=== PATIENT | female | born 1995 | race Caucasian/White ===

== ENCOUNTER 2016-05-09 17:16 | Emergency (ER) | payer OTHER ==
[~2016-05-09] VITALS: Ht 170.2 cm; Wt 62.0 kg
[~2016-05-09 17:16] MED LIST: Albuterol INH; ETONMIS VAGRING; LEVO75TA5 PO
[2016-05-09 17:27] VITALS: TEMP 37; Ht 170.2 cm; Wt 62.0 kg
[2016-05-09 17:53] LABS: MANUAL MICROSCOPIC REQUIRED? YES; URINE APPEARANCE SL CLOUDY (CLEAR); URINE BILIRUBIN NEG (NEG); URINE COLOR YELLOW; URINE NITRITE NEG (NEG); URINE PH 6.5 (4.5-7.5); URINE SPECIFIC GRAVITY 1.025 (1.000-1.030); UROBILINOGEN NEG (NEG)
[2016-05-09 17:55] LABS: REVIEW REQ? NO
[2016-05-09] MEDS ORDERED: LEVO100T7 PO (17:58)
[2016-05-09 18:00] LABS: URINE AMORPHOUS SEDIMENT PRESENT (NONE PRSENT); URINE BACTERIA NEG (NEG); URINE MUCUS PRESENT (NONE PRSENT)
--- NOTE | 2016-05-09 18:00 | EMERGENCY ROOM VISIT NOTE ---
History Report prepared by Tiffanie: Lauren Enciso Under the Supervision of: Dr. Kamran Peralta M.D. First contact with patient: 17:36 Chief Complaint: MENTAL HEALTH EVALUATION Stated Complaint: MENTAL BREAKDOWN History of Present Illness The patient is a 20 year old female who presents to the Emergency Room for a mental health evaluation. The patient states that she has been experiencing emotional outburst since the fall that has progressively been worsening these past few weeks. She notes that the outburst can be angry or crying and she is unable to control her emotion during the outburst. The patient states that she has been suicidal since high school however today was the first time she made a plan. Her suicidal plan was to take all her thyroid medications at once. The patient's friend that was with her stopped her from taking the medication and talked with her. She notes that see use to see a therapist at [facility] who she had great success with however her insurance stopped covering her sessions. [facility] but notes she has not been making progress with this therapist. The patient last week did bad on an exam and that has been making her very upset. She notes school otherwise has been going well this year. The patient does admit to drinking and last night she did drink. Today was the first time she felt unsafe at home and thought she was going to hurt herself. The patient denies medication for depression or anxiety. Source of History: patient Onset: fall time Position: other (global) Quality: other (mental health evaluation) Timing: worsening Note: Patient has been experiencing emotional outburst, suicidal ideations and suicidal plan. Review of Systems See HPI for pertinent positives & negatives. A total of 10 systems reviewed and were otherwise negative. Past Medical & Surgical Medical Problems: (1) Thyroid disorder Family History Patient reports no known family medical history. Social History Smoking Status: Never Smoker Alcohol Use: occasionally Marital Status: single Housing Status: lives with roommate Occupation Status: [employer] student Current/Historical Medications Scheduled Etonogestrel/Ethinyl Estradiol (Nuvaring), 1 EA VAGRING MONTHLY Levothyroxine Sodium (Levothyroxine Sodium), 1 TAB PO DAILY Allergies Coded Allergies: Nitrofurantoin (Verified Allergy, Intermediate, syncope, 05/09/16) Apple (Verified Allergy, Unknown, throat swells,itching, 05/09/16) Physical Exam Vital Signs Date Time Temp Pulse Resp B/P Pulse Ox O2 Delivery O2 Flow Rate FiO2 05/09/16 19:11 88 18 132/70 99 Room Air 05/09/16 17:27 37.0 104 18 139/86 100 Room Air Physical Exam GENERAL: Patient is a healthy-appearing well-nourished HEAD: Normocephalic atraumatic EYES: Ocular movements intact pupils equal and react to light OROPHARYNX mucous membranes are moist no exudates present no erythema or edema present NECK: Supple no nuchal rigidity CHEST: Good equal expansion LUNGS: Clear and equal to auscultation CARDIAC: Normal S1 and S2 ABDOMEN: Soft nontender no guarding BACK: No CVA tenderness EXTREMITIES: No pain upon palpation normal muscle strength in all groups no clubbing cyanosis or edema NEURO: Patient is following commands is answering questions appropriately. Alert and oriented x3 Cranial Nerves 2-12 grossly intact Medical Decision & Procedures Laboratory Results 05/09/16 17:58 Red Blood Count 4.45, Mean Corpuscular Volume 86.1, Mean Corpuscular Hemoglobin 29.7, Mean Corpuscular Hemoglobin Concent 34.5, Mean Platelet Volume 10.4, Neutrophils (%) (Auto) 56.2, Lymphocytes (%) (Auto) 35.6, Monocytes (%) (Auto) 6.5, Eosinophils (%) (Auto) 1.0, Basophils (%) (Auto) 0.5, Neutrophils # (Auto) 4.96, Lymphocytes # (Auto) 3.14, Monocytes # (Auto) 0.57, Eosinophils # (Auto) 0.09, Basophils # (Auto) 0.04 05/09/16 17:58 Test 05/09/16 17:34 05/09/16 17:51 05/09/16 17:58 Urine Color YELLOW Urine Appearance SL CLOUDY (CLEAR) Urine pH 6.5 (4.5-7.5) Urine Specific [place] 1.025 (1.000-1.030) Urine Protein NEG (NEG) Urine Glucose (UA) NEG (NEG) Urine Ketones NEG (NEG) Urine Occult Blood TRACE (NEG) Urine Nitrite NEG (NEG) Urine Bilirubin NEG (NEG) Urine Urobilinogen NEG (NEG) Urine Leukocyte Esterase SMALL (NEG) Urine RBC 5-10 /hpf (0-4) Urine WBC 1-5 /hpf (0-5) Urine Epithelial Cells 10-20 /lpf (0-5) Urine Amorphous Sediment PRESENT (NONE PRSENT) Urine Bacteria NEG (NEG) Urine Mucus PRESENT (NONE PRSENT) Urine Test NEG (NEG) Urine Opiates Screen NEG (NEG) Urine Methadone, Qualitative NEG (NEG) Urine Barbiturates NEG (NEG) Urine Phencyclidine (PCP) Level NEG (NEG) Ur Amphetamine/Methamphetamine NEG (NEG) MDMA (Ecstasy) Screen NEG (NEG) Urine Benzodiazepines Screen NEG (NEG) Urine Cocaine Metabolite NEG (NEG) Urine Marijuana (THC) NEG (NEG) Bedside Glucose 106 mg/dl (70-90) White Blood Count 8.82 K/uL (4.8-10.8) Red Blood Count 4.45 M/uL (4.2-5.4) Hemoglobin 13.2 g/dL (12.0-16.0) Hematocrit 38.3 % (37-47) Mean Corpuscular Volume 86.1 fL (80-100) Mean Corpuscular Hemoglobin 29.7 pg (25-34) Mean Corpuscular Hemoglobin Concent 34.5 g/dl (32-36) Platelet Count 176 K/uL (130-400) Mean Platelet Volume 10.4 fL (7.4-10.4) Neutrophils (%) (Auto) 56.2 % Lymphocytes (%) (Auto) 35.6 % Monocytes (%) (Auto) 6.5 % Eosinophils (%) (Auto) 1.0 % Basophils (%) (Auto) 0.5 % Neutrophils # (Auto) 4.96 K/uL (1.4-6.5) Lymphocytes # (Auto) 3.14 K/uL (1.2-3.4) Monocytes # (Auto) 0.57 K/uL (0.11-0.59) Eosinophils # (Auto) 0.09 K/uL (0-0.5) Basophils # (Auto) 0.04 K/uL (0-0.2) RDW Standard Deviation 40.4 fL (36.4-46.3) RDW Coefficient of Variation 12.6 % (11.5-14.5) Immature Granulocyte % (Auto) 0.2 % Immature Granulocyte # (Auto) 0.02 K/uL (0.00-0.02) Anion Gap 12.0 mmol/L (3-11) Est Creatinine Clear Calc Drug Dose 103.5 ml/min Estimated GFR () 115.1 Estimated GFR (Non- 99.3 BUN/Creatinine Ratio 15.2 (10-20) Calcium Level 9.4 mg/dl (8.5-10.1) Total Bilirubin 0.2 mg/dl (0.2-1) Direct Bilirubin < 0.1 mg/dl (0-0.2) Aspartate Amino Transf (AST/SGOT) 14 U/L (15-37) Alanine Aminotransferase (ALT/SGPT) 16 U/L (12-78) Alkaline Phosphatase 60 U/L (45-117) Total Protein 7.7 gm/dl (6.4-8.2) Albumin 3.7 gm/dl (3.4-5.0) Globulin 4.0 gm/dl (2.5-4.0) Albumin/Globulin Ratio 0.9 (0.9-2) Thyroid Stimulating Hormone (TSH) 1.110 uIu/ml (0.300-4.500) Ethyl Alcohol mg/dL < 3.0 mg/dl (0-3) Labs reviewed by ED physician. Medications Administered Medications (Trade) Dose Ordered Sig/Luisa Route Start Time Stop Time Status Last Admin Dose Admin Trimethoprim/ Sulfamethoxazole (Septra Ds 800/ 160MG Tab) 1 tab NOW STAT PO 05/09/16 18:24 05/09/16 18:26 DC 05/09/16 18:29 1 TAB ED Course 1738: Past medical records reviewed. The patient was evaluated in room A7. A complete history and physical examination was performed. 1805: Macrobid Cap 100 mg PO. 1824: Septra Ds 800/ 160 mg Tab 1 tab PO. Medical Decision The patient is a 20 year old female who presents to the ED for a mental health evaluation. Differential diagnosis: Etiologies such as mood disorder, infection, hypoglycemia, electrolyte abnormalities, cardiac sources, intracerebral event, toxicologic, neurologic, as well as others were entertained. This is a 20-year-old female who presents emergency department complaining of emotional outburst today. The patient reports she was feeling suicidal and felt like she was going to take her thyroid medication. She does appear to be stable at this point. She was evaluated by psychiatric case management who were going to refer the patient can help. The patient will be signed out to Dr. English pending can help evaluation along with mother. Impression Primary Impression: Mood disorder Additional Impression: UTI (urinary tract infection) Scribe Attestation The scribe's documentation has been prepared under my direction and personally reviewed by me in its entirety. I confirm that the note above accurately reflects all work, treatment, procedures, and medical decision making performed by me. Departure Information Dispostion Still a Patient Referrals No Doctor, Assigned (PCP) Patient Instructions My [facility] Problem Qualifiers Additional Impression: UTI (urinary tract infection) Urinary tract infection type: acute cystitis Hematuria presence: with hematuria Qualified Codes: N30.01 - Acute cystitis with hematuria
[2016-05-09] MEDS ORDERED: NITROFURANTOIN MONOHYDRATE 100 MG CAP PO STA (18:05)
[2016-05-09 18:07] LABS: BASO % 0.5 %; BASO ABS # 0.04 K/uL (0-0.2); COMPLETE YES; HEMATOCRIT 38.3 % (37-47); IG% 0.2 %; LYMPH % 35.6 %; LYMPH ABS # 3.14 K/uL (1.2-3.4); MEAN CELL VOLUME 86.1 fL (80-100); MEAN CORPUSCULAR HEMOGLOBIN 29.7 pg (25-34); MEAN CORPUSCULAR HGB CONC 34.5 g/dl (32-36); MEAN PLATELET VOLUME 10.4 fL (7.4-10.4); MONO % 6.5 %; NEUT % 56.2 %; PLATELET COUNT 176 K/uL (130-400); RED BLOOD COUNT 4.45 M/uL (4.2-5.4); WHITE BLOOD COUNT 8.82 K/uL (4.8-10.8)
[2016-05-09 18:14] LABS: BENZODIAZEPINE, URINE NEG (NEG); COCAINE,URINE NEG (NEG); PHENCYCLIDINE, URINE NEG (NEG)
[2016-05-09 18:24] LABS: ALT/SGPT 16 U/L (12-78); BLOOD UREA NITROGEN 13 mg/dl (7-18); BUN/CREATININE RATIO 15.2 (10-20); CALCIUM 9.4 mg/dl (8.5-10.1); CARBON DIOXIDE 21 mmol/L (21-32); CHLORIDE 107 mmol/L (98-107); CREATININE 0.85 mg/dl (0.60-1.20); GLUCOSE 114 mg/dl (70-99); SODIUM 140 mmol/L (136-145)
[2016-05-09] MEDS ORDERED: SULFAMETHOXAZOLE/TRIMETHOPRIM DS 800/160MG TAB PO STA (18:24)
[2016-05-09 18:34] LABS: ALB/GLOB RATIO 0.9 (0.9-2); ALKALINE PHOSPHATASE 60 U/L (45-117); AST/SGOT 14 U/L (15-37)
[2016-05-09] MEDS ORDERED: SULF800T23 PO (20:23)
--- NOTE | 2016-05-09 22:34 | EMERGENCY ROOM VISIT NOTE ---
ED Visit Note This patient was signed out to me. Mother is present and can help evaluated the patient. The patient agreed to outpatient follow-up. She states that she did not want to come into the hospital or be inpatient mental health as she did not want to miss school or [place]. The mother will take the patient home. She' ll be in close contact with the mother as well as roommates. She will not have access to her medication. The patient is felt to be stable for discharge. She will return should she have any worsening of her condition.
[2016-05-09 22:48] VITALS: BP 122/86; PULSE 103; O2SAT 99
== END 2016-05-09 22:51 | disposition home or self-care (01) ==
LOC: C.EDB 17:17 → C.EDA 22:51
DX: F39 Unspecified mood [affective] disorder (principal); N30.01 Acute cystitis with hematuria; E07.9 Disorder of thyroid, unspecified; Z79.899 Other long term (current) drug therapy

== ENCOUNTER 2016-06-07 15:17 | Inpatient (IN) | payer OTHER ==
[~2016-06-07] VITALS: Ht 168.9 cm; Wt 60.1 kg
[~2016-06-07 15:17] MED LIST changes: -Albuterol INH; +LEVO100T7 PO; -LEVO75TA5 PO
[2016-06-07 15:54] LABS: BASO % 0.5 %; BASO ABS # 0.03 K/uL (0-0.2); COMPLETE YES; HEMATOCRIT 38.9 % (37-47); IG% 0.2 %; LYMPH % 45.3 %; MEAN CELL VOLUME 86.1 fL (80-100); MEAN CORPUSCULAR HEMOGLOBIN 29.9 pg (25-34); MEAN CORPUSCULAR HGB CONC 34.7 g/dl (32-36); MEAN PLATELET VOLUME 10.6 fL (7.4-10.4); MONO % 5.7 %; NEUT % 48.3 %; PLATELET COUNT 174 K/uL (130-400); RED BLOOD COUNT 4.52 M/uL (4.2-5.4); WHITE BLOOD COUNT 6.18 K/uL (4.8-10.8)
[2016-06-07] MEDS ORDERED: ESCI10TA17 PO (16:02)
[2016-06-07 16:14] LABS: ALT/SGPT 19 U/L (12-78); BLOOD UREA NITROGEN 11 mg/dl (7-18); BUN/CREATININE RATIO 11.3 (10-20); CARBON DIOXIDE 24 mmol/L (21-32); CHLORIDE 105 mmol/L (98-107); CREATININE 0.93 mg/dl (0.60-1.20); GLUCOSE 94 mg/dl (70-99); POTASSIUM 3.4 mmol/L (3.5-5.1); SODIUM 140 mmol/L (136-145)
[2016-06-07 16:17] LABS: ACETAMINOPHEN < 2 ug/ml (10-30)
[2016-06-07 16:18] LABS: URINE APPEARANCE CLEAR (CLEAR); URINE BILIRUBIN NEG (NEG); URINE COLOR YELLOW; URINE NITRITE NEG (NEG); URINE SPECIFIC GRAVITY 1.003 (1.000-1.030); UROBILINOGEN NEG (NEG)
[2016-06-07 16:19] LABS: MANUAL MICROSCOPIC REQUIRED? NO; REVIEW REQ? NO
[2016-06-07 16:25] LABS: ALB/GLOB RATIO 0.9 (0.9-2); ALKALINE PHOSPHATASE 64 U/L (45-117); AST/SGOT 16 U/L (15-37)
[2016-06-07 16:31] LABS: BENZODIAZEPINE, URINE NEG (NEG); COCAINE,URINE NEG (NEG); PHENCYCLIDINE, URINE NEG (NEG)
[2016-06-07] MEDS ORDERED: BISMUTH SUBSALICYLATE PER ML OMNICELL CHARGE PO PRN (17:15)
[2016-06-07] MEDS ORDERED: MAGNESIUM HYDROXIDE SUSP 30 ML UDC PO PRN (17:15)
[2016-06-07] MEDS ORDERED: ALUMINUM/MAGNESIUM SUSP 30 ML UDC PO PRN (17:15)
[2016-06-07] MEDS ORDERED: hydrOXYzine HCL 25 MG TAB PO PRN (17:15)
[2016-06-07] MEDS ORDERED: SODIUM CHLORIDE 0.65% NA SOLN 45 ML (OCEAN) PRN (17:15)
[2016-06-07 17:30] VITALS: O2SAT 99
[2016-06-07 19:37] VITALS: BP_SYST 111; BP_SYST 120; BP_DIAS 75; BP_DIAS 76; PULSE 80; PULSE 94; TEMP 37; Ht 168.9 cm; Wt 60.1 kg
--- NOTE | 2016-06-07 21:13 | EMERGENCY ROOM VISIT NOTE ---
History Report prepared by Tiffanie: Sumaya Nuñez Under the Supervision of: Dr. Sang Castillo M.D. First contact with patient: 15:33 Chief Complaint: MENTAL HEALTH EVALUATION Stated Complaint: MENTAL HEALTH CONCERNS History of Present Illness The patient is a 20 year old female who presents to the Emergency Room for a mental health evaluation. The patient has been feeling worsening depression with suicidal thoughts. She was initially seen in the ER a few weeks ago for similar symptoms but wanted to be discharged home because it was . Since then, she was started on Lexapro by [facility]'s psych clinic. 10 days ago , she had an increase in her dose. She notes that she has continued to have suicidal thoughts. She is afraid that she will not be able to stay safe if she is not hospitalized. She has never made a suicide attempt. She has never been admitted for inpatient mental health care. She notes that she has had troubles with concentration and sleep. She has not been able to focus on her school work. She also has not been eating as much as usual. Currently, the patient complains of dizziness, headaches, and some nausea since she has started on the Lexapro. She denies any recent alcohol or drug use. She is not close with her father but believes he may have had an anxiety disorder and attempts at suicide. 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 Pt denies LOC, fevers, chills, diaphoresis, visual changes, neck pain , chest pain, breathing difficulties, vomiting, abdominal pain, back pain, melena, hematochezia, urinary symptoms, numbness, weakness, lymphadenopathy, rash, or other complaints. Source of History: patient Quality: other (depression) Timing: worsening Associated Symptoms: + headache, + nausea Note: Other symptoms: suicidal thoughts, dizziness Review of Systems See HPI for pertinent positives and negatives. A total of ten systems were reviewed and were otherwise negative. Past Medical & Surgical Medical Problems: (1) Suicidal ideation (2) Thyroid disorder Family History Patient reports no known family medical history. Social History Smoking Status: Never Smoker Alcohol Use: occasionally Marital Status: single Housing Status: lives with roommate Occupation Status: [employer] student Current/Historical Medications Scheduled Escitalopram (Lexapro), 10 MG PO DAILY Etonogestrel/Ethinyl Estradiol (Nuvaring), 1 EA VAGRING MONTHLY Levothyroxine Sodium (Levothyroxine Sodium), 100 MCG PO DAILY Allergies Coded Allergies: Nitrofurantoin (Verified Allergy, Intermediate, syncope, 05/09/16) Apple (Verified Allergy, Unknown, throat swells,itching, 05/09/16) Physical Exam Vital Signs Date Time Temp Pulse Resp B/P Pulse Ox O2 Delivery O2 Flow Rate FiO2 06/07/16 16:30 99 20 138/75 100 Room Air 06/07/16 15:28 36.7 110 18 140/85 98 Room Air Physical Exam GENERAL: Awake, alert, well appearing, no distress HENT: Normocephalic, atraumatic. TM's normal. Oropharynx unremarkable. EYES: PERRL. EOMI. Normal conjunctiva. Sclera non-icteric. NECK: Supple. No nuchal rigidity. FROM. No JVD or bruit. RESPIRATORY: CTA CARDIAC: RRR. No murmur. ABDOMEN: Soft, non distended. No tenderness to palpation. No rebound or guarding. No masses. MUSCULOSKELETAL: Unremarkable. No edema. No discoloration. Gross motor strength symmetric. NEURO: Cranial nerves 2-12 grossly intact. Normal sensorium. No sensory or motor deficits noted. Speech normal. No pronator drift. SKIN: No rash or jaundice noted. LYMPH: No adenopathy. PSYCH: Depressed mood. Flat affect. Positive suicidal ideation. Negative homicidal ideation. Medical Decision & Procedures Laboratory Results 06/07/16 15:45 Red Blood Count 4.52, Mean Corpuscular Volume 86.1, Mean Corpuscular Hemoglobin 29.9, Mean Corpuscular Hemoglobin Concent 34.7, Mean Platelet Volume 10.6, Neutrophils (%) (Auto) 48.3, Lymphocytes (%) (Auto) 45.3, Monocytes (%) (Auto) 5.7, Eosinophils (%) (Auto) 0.0, Basophils (%) (Auto) 0.5, Neutrophils # (Auto) 2.99, Lymphocytes # (Auto) 2.80, Monocytes # (Auto) 0.35, Eosinophils # (Auto) 0.00, Basophils # (Auto) 0.03 06/07/16 15:45 Test 06/07/16 15:45 White Blood Count 6.18 K/uL (4.8-10.8) Red Blood Count 4.52 M/uL (4.2-5.4) Hemoglobin 13.5 g/dL (12.0-16.0) Hematocrit 38.9 % (37-47) Mean Corpuscular Volume 86.1 fL (80-100) Mean Corpuscular Hemoglobin 29.9 pg (25-34) Mean Corpuscular Hemoglobin Concent 34.7 g/dl (32-36) Platelet Count 174 K/uL (130-400) Mean Platelet Volume 10.6 fL (7.4-10.4) Neutrophils (%) (Auto) 48.3 % Lymphocytes (%) (Auto) 45.3 % Monocytes (%) (Auto) 5.7 % Eosinophils (%) (Auto) 0.0 % Basophils (%) (Auto) 0.5 % Neutrophils # (Auto) 2.99 K/uL (1.4-6.5) Lymphocytes # (Auto) 2.80 K/uL (1.2-3.4) Monocytes # (Auto) 0.35 K/uL (0.11-0.59) Eosinophils # (Auto) 0.00 K/uL (0-0.5) Basophils # (Auto) 0.03 K/uL (0-0.2) RDW Standard Deviation 38.8 fL (36.4-46.3) RDW Coefficient of Variation 12.3 % (11.5-14.5) Immature Granulocyte % (Auto) 0.2 % Immature Granulocyte # (Auto) 0.01 K/uL (0.00-0.02) Urine Color YELLOW Urine Appearance CLEAR (CLEAR) Urine pH 7.0 (4.5-7.5) Urine Specific [place] 1.003 (1.000-1.030) Urine Protein NEG (NEG) Urine Glucose (UA) NEG (NEG) Urine Ketones NEG (NEG) Urine Occult Blood NEG (NEG) Urine Nitrite NEG (NEG) Urine Bilirubin NEG (NEG) Urine Urobilinogen NEG (NEG) Urine Leukocyte Esterase TRACE (NEG) Urine WBC (Auto) 1-5 /hpf (0-5) Urine RBC (Auto) 0-4 /hpf (0-4) Urine Hyaline Casts (Auto) 0 /lpf (0-5) Urine Epithelial Cells (Auto) 10-20 /lpf (0-5) Urine Bacteria (Auto) NEG (NEG) Urine Test NEG (NEG) Anion Gap 11.0 mmol/L (3-11) Est Creatinine Clear Calc Drug Dose 94.6 ml/min Estimated GFR () 103.3 Estimated GFR (Non- 89.1 BUN/Creatinine Ratio 11.3 (10-20) Calcium Level 9.0 mg/dl (8.5-10.1) Total Bilirubin 0.3 mg/dl (0.2-1) Direct Bilirubin < 0.1 mg/dl (0-0.2) Aspartate Amino Transf (AST/SGOT) 16 U/L (15-37) Alanine Aminotransferase (ALT/SGPT) 19 U/L (12-78) Alkaline Phosphatase 64 U/L (45-117) Total Protein 7.8 gm/dl (6.4-8.2) Albumin 3.7 gm/dl (3.4-5.0) Globulin 4.1 gm/dl (2.5-4.0) Albumin/Globulin Ratio 0.9 (0.9-2) Thyroid Stimulating Hormone (TSH) 2.270 uIu/ml (0.300-4.500) Salicylates Level < 1.7 mg/dl (2.8-20) Urine Opiates Screen NEG (NEG) Urine Methadone, Qualitative NEG (NEG) Acetaminophen Level < 2 ug/ml (10-30) Urine Barbiturates NEG (NEG) Urine Phencyclidine (PCP) Level NEG (NEG) Ur Amphetamine/Methamphetamine NEG (NEG) MDMA (Ecstasy) Screen NEG (NEG) Urine Benzodiazepines Screen NEG (NEG) Urine Cocaine Metabolite NEG (NEG) Urine Marijuana (THC) NEG (NEG) Ethyl Alcohol mg/dL < 3.0 mg/dl (0-3) Laboratory results reviewed by or ED Course 1620: The patient was evaluated in room A6. A complete history and physical exam was performed. 1720: I reassessed the patient and updated her on results. [facility] is reviewing the patient's case. 1750: The patient will be evaluated upstairs in [place]. Medical Decision Triage Nursing notes reviewed. The patient's presentation and history were concerning for suicidal thoughts. Etiologies such as mood disorder, toxicologic, infection, hypoglycemia, electrolyte abnormalities, cardiac sources, intracerebral event, neurologic, as well as others were entertained. The patient was evaluated. Her physical examination was as above. She had suicidal ideation. She had findings concerning for some depression as well. Her CBC, chemistry panel, LFTs, TSH, Tylenol, salicylate, alcohol, and drug screen were unremarkable. Consultation was made with mental health. The patient was evaluated and admitted to [facility] for further management. The chart was completed utilizing [employer] voice recognition software. Grammatical errors, random word insertions, pronoun errors, and incomplete sentences are an occasional consequence of this system due to software limitations, ambient noise, and hardware issues. Any formal questions or concerns about the content, text, or information contained within the body of this dictation should be directly addressed to the physician for clarification. Impression Primary Impression: Mood disorder Additional Impression: Suicidal ideation Scribe Attestation The scribe's documentation has been prepared under my direction and personally reviewed by me in its entirety. I confirm that the note above accurately reflects all work, treatment, procedures, and medical decision making performed by me. Departure Information Dispostion Mental Health Acute Care Referrals No Doctor, Assigned (PCP) Patient Instructions My [facility] Problem Qualifiers
[2016-06-07] MEDS ORDERED: LEVOTHYROXINE 100 MCG TAB PO ONE (22:30)
[2016-06-07] MEDS ORDERED: NURSING VERBAL MED ORDER ONE (22:30)
[2016-06-07] MEDS: ACETAMINOPHEN 325 MG TAB PO PRN (22:42)
[2016-06-07] MEDS: hydrOXYzine HCL 25 MG TAB PO PRN (23:30)
[2016-06-08] MEDS ORDERED: LEVOTHYROXINE 100 MCG TAB PO SCH (07:00)
[2016-06-08 07:05] VITALS: BP_SYST 107; BP_SYST 94; BP_DIAS 61; BP_DIAS 65; PULSE 112; PULSE 81; TEMP 36.9
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
[2016-06-08] MEDS: LEVOTHYROXINE 100 MCG TAB PO SCH (21:12)
[2016-06-08] MEDS: hydrOXYzine HCL 25 MG TAB PO PRN (22:43)
[2016-06-09 06:55] VITALS: BP_SYST 110; BP_SYST 94; BP_DIAS 57; BP_DIAS 71; PULSE 114; PULSE 85; TEMP 36.8
[2016-06-09] MEDS: ESCITALOPRAM OXALATE 10 MG TAB PO SCH (08:43)
--- NOTE | 2016-06-09 12:27 | Psychiatric Progress Notes ---
Progress Note Date of Service Jun 09, 2016. 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 psych clinic, and presented with worsening mood and suicidal ideation with a plan to cut her wrists. She was admitted voluntarily. Chief Complaint "Susy angry, more irritability". Subjective Patient was seen & assessed interval progress reviewed with Treatment Team. Staff report she is going to groups and participating in treatment. She has been anxious about her insurance company, due to their refusal to work with the hospital for a single case agreement. She continues to state she does not want to transfer to another facility, but wants to continue care here. She says she feels more irritable today, just came from a group where "we were supposed to be talking about anger, and no one was, just talking in circles." She struggles with healthy ways to cope with her anger, saying "it sometimes builds up and I have huge explosive episodes." She describes "flipping out, losing it verbally for little things." Occurs twice a year, and she regrets the things she says later. Sleep was good with hydroxyzine. Appetite good, eating 100% of most meals. She continues to endorse SI, saying she has "images of cutting" that occurs several times daily, worse when "I get into a hopeless cycle in my head. " She denies side effects to the Lexapro, and usually takes it at night. Sleep Information Total Hours of Sleep: 6.25 Meal Information Percent of Breakfast Consumed: 100 Percent of Lunch Consumed: 90 Percent of Dinner Consumed: 100 Mental Status Exam During interview pt is: alert and oriented, cooperative Appearance: appropriately dressed (wearing leggings and a sweatshirt, glasses, and nose ring.), appropriately groomed (hair is freshly washed, good hygiene.) Eye contact is: good Motor behavior is: steady gait & station, no abnormal motor movements Speech: normal in rate, rhythm & volume Affect: mood congruent, depressed, constricted Mood is: depressed Thought process: goal directed, linear, logical, clear, coherent Thought content: reality based without delusions Suicidal thought are: present, Plan: present Homicidal thoughts are: denied Hallucinations: denies auditory, denies visual Cognition: memory grossly intact, attention grossly intact, language grossly intact Intelligence estimated to be: consistent with level of education Insight: good Judgement: good Impression 20-year-old [employer] [facility] [facility] student from [employer] who has a history of depression and anxiety treated at the [facility] psych clinic and presents with worsening mood and suicidal ideation with thoughts to cut her wrists. Inpatient treatment is indicated, as she is unable to contract for safety outside of the hospital. She has just recently been started on escitalopram, and would benefit from dose escalation, as well as inpatient programming. Plan (1) Suicidal ideation -Suicide checks for safety. -Work on healthy coping skills and the discharge safety plan. -Recommend family meeting with mother. -Coordinate care with outpatient providers at the [facility]. (2) Depression, major, recurrent -Reviewed diagnosis and recommended treatment. Patient is willing to increase escitalopram dose to 15 mg daily, and may increase further to 20 mg daily if tolerated. -Encourage participation in unit groups and programming. 06/09 -Will increase escitalopram to 20mg and move to bedtime for tomorrow at patient' s request. -Continue hydroxyzine prn for sleep. -Request records from [facility]. (3) Anxiety disorder, unspecified -Increase escitalopram as above. Offer hydroxyzine as needed. (4) Thyroid disorder -Continue home dose of levothyroxine. Discharge / Aftercare Planning Primary Care Physician: Name: [facility] Psychiatrist: Name: Dr Garrison Date of Appointment: Jun 17, 2016 Time of Appointment: 3:00pm Therapist: Name: [facility] Date of Appointment: Jun 15, 2016 Time of Appointment: 2:30pm Visit Code E&M Code: 80307 Inventory Assets Strengths: "Insightful perspective, try to keep an open mind. Risk Factors Assessment : Yes /single/: Yes Health problems: Yes Mental Health Diagnoses: Yes Substance use disorders: No Previous attempt: No Previous psychiatric stay: No Hopelessness: Yes Smoker: No Protective Factors Assessment Latter-Day beliefs: No : No Responsible for young children: No Employed: No Stable relationships: No Supportive family: Yes Data Vital Signs Last 24 Hrs: Date Time Temp Pulse Resp B/P Pulse Ox O2 Delivery O2 Flow Rate FiO2 06/09/16 06:55 36.8 85 16 110/71 114 94/57 Meds Administered Last 24 Hrs: Meds Administered (Past 24Hrs) Medications (Trade) Dose Ordered Sig/Luisa Route Start Time Stop Time Status Last Admin Dose Admin Acetaminophen (Tylenol Tab) 650 mg Q4H PRN PO 06/07/16 17:15 07/07/16 17:14 06/07/16 22:42 650 MG Hydroxyzine HCl (Vistaril Tab) 50 mg HSZ PRN PO 06/07/16 17:15 07/07/16 17:14 06/08/16 22:43 50 MG Levothyroxine Sodium (Synthroid Tab) 100 mcg NOW ONCE PO 06/07/16 22:30 06/07/16 22:31 DC 06/07/16 22:36 100 MCG Levothyroxine Sodium (Synthroid Tab) 100 mcg HS PO 06/08/16 22:00 07/08/16 21:59 06/08/16 21:12 100 MCG Escitalopram Oxalate (Lexapro Tab) 15 mg QAM PO 06/09/16 09:00 07/09/16 08:59 06/09/16 08:43 15 MG
[2016-06-09] MEDS: LEVOTHYROXINE 100 MCG TAB PO SCH (21:14)
[2016-06-09] MEDS: hydrOXYzine HCL 25 MG TAB PO PRN (21:14)
[2016-06-10 06:46] VITALS: BP_SYST 106; BP_SYST 114; BP_DIAS 68; BP_DIAS 78; PULSE 106; PULSE 83; TEMP 36.8
[2016-06-10] MEDS: ESCITALOPRAM OXALATE 10 MG TAB PO SCH (09:00)
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
[2016-06-10] MEDS: ACETAMINOPHEN 325 MG TAB PO PRN (15:59)
[2016-06-10] MEDS: ESCITALOPRAM OXALATE 20 MG TAB PO SCH (21:06)
[2016-06-10] MEDS: LEVOTHYROXINE 100 MCG TAB PO SCH (21:06)
[2016-06-10] MEDS: hydrOXYzine HCL 25 MG TAB PO PRN (21:08)
[2016-06-11 06:47] VITALS: BP_SYST 101; BP_SYST 99; BP_DIAS 60; BP_DIAS 64; PULSE 103; PULSE 80; TEMP 36.9
--- NOTE | 2016-06-11 11:07 | Psychiatric Progress Notes ---
Progress Note Date of Service Jun 11, 2016. 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 She was admitted voluntarily. Chief Complaint "I'm in a crappy mood today.". Subjective Patient was seen & assessed interval progress reviewed with Treatment Team. The patient said that she woke up in a "crappy mood". She is feeling bothered by the fact that her male friend Himanshu has not contacted her in 2 days despite having left messages for him. He has however, responded to her mother's texts. She says that she has been talking with him daily since February, but went through "a rough patch" several weeks ago when he said he still had feelings for his ex girlfriend, but she rejected him. She fears that his absence the last several days may mean that he does not want a relationship with her, and is trying not to let that bother her. This all taps into her trust issues. Her anxiety is high, and she reports having had good relief when she had an ativan in the past. Her mother will be coming to town today, "She'd probably stay as long as I want her to.". She denies SI, and says that she believes she would be safe at home. Review of Systems Constitutional: No chills, No fatigue, No fever, No problem reported, No sweats , No weakness, No weight loss ENT: No dental problems, No hearing loss, No nasal symptoms, No problem reported, No sore throat, No tinnitus, No trouble swallowing, No unusual epistaxis Respiratory: No cough, No dyspnea at rest, No dyspnea on exertion, No hemoptysis, No problem reported, No shortness of breath, No sputum, No wheezing Cardiovascular: No PND, No chest pain, No claudication, No edema, No orthopnea , No palpitations, No problem reported Abdomen: No GI bleeding, No constipation, No diarrhea, No nausea, No pain, No problem reported, No vomiting Musculoskeletal: No calf pain, No joint pain, No muscle pain, No problem reported, No swelling Neurologic: No balance problems, No memory loss, No numbness/tingling, No paralysis, No problem reported, No vertigo, No weakness Psychiatric: + depression symptoms (but no SI) Integumentary: No bleeding, No color change, No itch, No new/changing skin lesions, No problem reported, No rash Sleep Information Total Hours of Sleep: 6.25 Meal Information Percent of Breakfast Consumed: 100 Percent of Lunch Consumed: 100 Percent of Dinner Consumed: 100 Mental Status Exam During interview pt is: alert and oriented, cooperative Appearance: appropriately dressed (wearing leggings and a sweatshirt, glasses, and nose ring.), appropriately groomed (hair is freshly washed, good hygiene.) Eye contact is: good Motor behavior is: steady gait & station, no abnormal motor movements Speech: normal in rate, rhythm & volume Affect: mood congruent, depressed, flat, constricted Mood is: depressed Thought process: goal directed, linear, logical, clear, coherent Thought content: reality based without delusions Suicidal thought are: present, Plan: present Homicidal thoughts are: denied Hallucinations: denies auditory, denies visual Cognition: memory grossly intact, attention grossly intact, language grossly intact Intelligence estimated to be: consistent with level of education Insight: good Judgement: good Impression Still struggling with sleep, having woken several times . Anxiety is high but mood neutral. Is worrying about relationship with male friend who is not contacting her. Is tolerating Lexapro 20 mg. without side effect. Will trial ativan 0.5 mg. daily prn anxiety having explained that this is a short term medication, and whether or not it will be continued is up to her OP provider. Continued Inpatient Care The patient requires inpatient care due to the severity of her condition and the risk for self harm if discharged. Plan (1) Suicidal ideation -Suicide checks for safety. -Work on healthy coping skills and the discharge safety plan. -Recommend family meeting with mother. -Coordinate care with outpatient providers at the [facility] psych clinic. (2) Depression, major, recurrent -Reviewed diagnosis and recommended treatment. Patient is willing to increase escitalopram dose to 15 mg daily, and may increase further to 20 mg daily if tolerated. -Encourage participation in unit groups and programming. 06/09 -Will increase escitalopram to 20mg and move to bedtime for tomorrow at patient' s request. -Continue hydroxyzine prn for sleep. -Request records from [facility]. 06/10 - Lexapro to 20 mg. tonight (3) Anxiety disorder, unspecified -Increase escitalopram as above. Offer hydroxyzine as needed. 06/11 - Trial ativan 0.5 mg. daily prn anxiety (4) Thyroid disorder -Continue home dose of levothyroxine. Discharge / Aftercare Planning Primary Care Physician: Name: [facility] Appointment Notes: as needed Psychiatrist: Name: Dr Garrison [facility] Phone Number: [phone] Date of Appointment: Jun 17, 2016 Time of Appointment: 3:00pm [facility] Number: [phone] Date of Appointment: Jun 15, 2016 Time of Appointment: 2:30pm Visit Code E&M Code: 69805 Inventory Assets Strengths: "Insightful perspective, try to keep an open mind. Risk Factors Assessment : Yes /single/: Yes Health problems: Yes Mental Health Diagnoses: Yes Substance use disorders: No Previous attempt: No Previous psychiatric stay: No Hopelessness: Yes Smoker: No Protective Factors Assessment Jew beliefs: No : No Responsible for young children: No Employed: No Stable relationships: No Supportive family: Yes Data Vital Signs Last 24 Hrs: Date Time Temp Pulse Resp B/P Pulse Ox O2 Delivery O2 Flow Rate FiO2 06/11/16 06:47 36.9 80 18 101/60 103 99/64 Meds Administered Last 24 Hrs: Meds Administered (Past 24Hrs) Medications (Trade) Dose Ordered Sig/Luisa Route Start Time Stop Time Status Last Admin Dose Admin Escitalopram Oxalate (Lexapro Tab) 20 mg HS PO 06/10/16 22:00 07/10/16 21:59 06/10/16 21:06 20 MG Lab Results Last 24 Hrs: 06/07/16 15:45 Red Blood Count 4.52, Mean Corpuscular Volume 86.1, Mean Corpuscular Hemoglobin 29.9, Mean Corpuscular Hemoglobin Concent 34.7, Mean Platelet Volume 10.6, Neutrophils (%) (Auto) 48.3, Lymphocytes (%) (Auto) 45.3, Monocytes (%) (Auto) 5.7, Eosinophils (%) (Auto) 0.0, Basophils (%) (Auto) 0.5, Neutrophils # (Auto) 2.99, Lymphocytes # (Auto) 2.80, Monocytes # (Auto) 0.35, Eosinophils # (Auto) 0.00, Basophils # (Auto) 0.03 06/07/16 15:45 Test 06/07/16 15:45 White Blood Count 6.18 K/uL (4.8-10.8) Red Blood Count 4.52 M/uL (4.2-5.4) Hemoglobin 13.5 g/dL (12.0-16.0) Hematocrit 38.9 % (37-47) Mean Corpuscular Volume 86.1 fL (80-100) Mean Corpuscular Hemoglobin 29.9 pg (25-34) Mean Corpuscular Hemoglobin Concent 34.7 g/dl (32-36) Platelet Count 174 K/uL (130-400) Mean Platelet Volume 10.6 fL (7.4-10.4) Neutrophils (%) (Auto) 48.3 % Lymphocytes (%) (Auto) 45.3 % Monocytes (%) (Auto) 5.7 % Eosinophils (%) (Auto) 0.0 % Basophils (%) (Auto) 0.5 % Neutrophils # (Auto) 2.99 K/uL (1.4-6.5) Lymphocytes # (Auto) 2.80 K/uL (1.2-3.4) Monocytes # (Auto) 0.35 K/uL (0.11-0.59) Eosinophils # (Auto) 0.00 K/uL (0-0.5) Basophils # (Auto) 0.03 K/uL (0-0.2) RDW Standard Deviation 38.8 fL (36.4-46.3) RDW Coefficient of Variation 12.3 % (11.5-14.5) Immature Granulocyte % (Auto) 0.2 % Immature Granulocyte # (Auto) 0.01 K/uL (0.00-0.02) Urine Color YELLOW Urine Appearance CLEAR (CLEAR) Urine pH 7.0 (4.5-7.5) Urine Specific [place] 1.003 (1.000-1.030) Urine Protein NEG (NEG) Urine Glucose (UA) NEG (NEG) Urine Ketones NEG (NEG) Urine Occult Blood NEG (NEG) Urine Nitrite NEG (NEG) Urine Bilirubin NEG (NEG) Urine Urobilinogen NEG (NEG) Urine Leukocyte Esterase TRACE (NEG) Urine WBC (Auto) 1-5 /hpf (0-5) Urine RBC (Auto) 0-4 /hpf (0-4) Urine Hyaline Casts (Auto) 0 /lpf (0-5) Urine Epithelial Cells (Auto) 10-20 /lpf (0-5) Urine Bacteria (Auto) NEG (NEG) Urine Test NEG (NEG) Anion Gap 11.0 mmol/L (3-11) Est Creatinine Clear Calc Drug Dose 94.6 ml/min Estimated GFR () 103.3 Estimated GFR (Non- 89.1 BUN/Creatinine Ratio 11.3 (10-20) Calcium Level 9.0 mg/dl (8.5-10.1) Total Bilirubin 0.3 mg/dl (0.2-1) Direct Bilirubin < 0.1 mg/dl (0-0.2) Aspartate Amino Transf (AST/SGOT) 16 U/L (15-37) Alanine Aminotransferase (ALT/SGPT) 19 U/L (12-78) Alkaline Phosphatase 64 U/L (45-117) Total Protein 7.8 gm/dl (6.4-8.2) Albumin 3.7 gm/dl (3.4-5.0) Globulin 4.1 gm/dl (2.5-4.0) Albumin/Globulin Ratio 0.9 (0.9-2) Thyroid Stimulating Hormone (TSH) 2.270 uIu/ml (0.300-4.500) Salicylates Level < 1.7 mg/dl (2.8-20) Urine Opiates Screen NEG (NEG) Urine Methadone, Qualitative NEG (NEG) Acetaminophen Level < 2 ug/ml (10-30) Urine Barbiturates NEG (NEG) Urine Phencyclidine (PCP) Level NEG (NEG) Ur Amphetamine/Methamphetamine NEG (NEG) MDMA (Ecstasy) Screen NEG (NEG) Urine Benzodiazepines Screen NEG (NEG) Urine Cocaine Metabolite NEG (NEG) Urine Marijuana (THC) NEG (NEG) Ethyl Alcohol mg/dL < 3.0 mg/dl (0-3)
[2016-06-11] MEDS ORDERED: LORAZEPAM 0.5 MG TAB PO PRN (11:15)
[2016-06-11] MEDS: hydrOXYzine HCL 25 MG TAB PO PRN (20:57)
[2016-06-11] MEDS: ESCITALOPRAM OXALATE 20 MG TAB PO SCH (20:57)
[2016-06-11] MEDS: LEVOTHYROXINE 100 MCG TAB PO SCH (20:57)
[2016-06-12 06:56] VITALS: BP_SYST 104; BP_SYST 92; BP_DIAS 63; BP_DIAS 64; PULSE 105; PULSE 74; TEMP 36.8
--- NOTE | 2016-06-12 10:59 | Discharge Instructions ---
Discharge Information Report Includes Report will include the: Discharge Instructions & Summary Admission Admission Date / Time: Jun 07, 2016 at 17:10 Reason for Admission: Depression Discharge Discharge Diagnosis / Problem: Depression Condition at Discharge: Good Discharge Goals Goal(s): Improve function Activity Recommendations Activity Limitations: resume your previous activity Exercise/Sports Limitations: none Shower/Bathe: no limitations Driving or Machine Use: no limitations . Instructions / Follow-Up Instructions / Follow-Up . SPECIAL CARE INSTRUCTIONS: 1. Follow through with your scheduled aftercare appointments. If unable to keep an appointment, please call to reschedule. 2. Take your medication only as prescribed. Medication should not be changed or stopped without the approval of your doctor. In the event of worsening symptoms or concerns about side effects, contact your doctor immediately. 3. Utilize new healthy coping skills, anger management skills, and stress management skills learned during your hospitalization. Journal feelings and process them with a support person. Identify stressors or situations that may result in relapse, deterioration or inappropriate behaviors and develop a plan to deal with those issues. 4. If your coping skills are ineffective and you are in crisis, contact your outpatient providers for direction. If unable to reach your providers, please call the CAN HELP LINE AT or go to the closest Emergency Room. 5. Avoid alcohol and un-prescribed drugs. 6. You have been provided with the Mental Health Advance Directives Pamphlet for your review. AFTERCARE APPOINTMENTS: * Please call your insurance company prior to your scheduled appointment to confirm your aftercare providers are covered. Take your insurance information to your appointments. . Discharge / Aftercare Planning Primary Care Physician: Name: [facility] Appointment Notes: as needed Psychiatrist: Name: Dr Garrison - [facility] Phone Number: [phone] Date of Appointment: Jun 17, 2016 Time of Appointment: 3:00pm Therapist: [facility] Phone Number: [phone] Date of Appointment: Jun 15, 2016 Time of Appointment: 2:30pm . Follow-Up Care Plan for Follow-Up Care: Psychiatric follow up with Dr. Garrison and therapy with Judy at [facility] Current Hospital Diet Patient's current hospital diet: Regular Diet Discharge Diet Recommended Diet: Regular Diet Procedures Procedures Performed: No Pending Studies Pending Studies at Discharge: No Medical Emergencies . Who to Call and When: Medical Emergencies: For questions or emergencies related to your hospital stay, please contact the Inpatient Behavioral Health Unit at [phone]. A knotting machine operator is on-call 18/10 for the Behavioral Health Unit for emergencies At any time you feel your situation is an emergency, you may also call 911 immediately. . Non-Emergent Contact Non-Emergency issues call your: Psychiatrist Advance Directives Existing Advance Directive: No Do You Have an Existing Mental: No Existing Living Will: No Existing Power of Motor Vehicle Emissions Inspector: No Advance Directives Info Given: To Pt/S.O. Discharge Summary Admission HPI Per the Admitting provider: This is the patient's first psychiatric admission. She was seen in the emergency room 04/1216 for depression, and although inpatient treatment was recommended, she ultimately requested to go home, as she did not want to miss school or [employer]. She states that the following day, she had her first panic attack, for which she took her friend's Ativan. She described a gradual onset of shortness of breath, chest pain, and "I couldn't calm down," which lasted hours, and improved after she drove to her friend's house and took some Ativan he gave her. She described feeling fearful and paranoid, thinking that if she went to sleep, I wouldn't be there, this other thing was controlling me and would take over." She denies that she's had these symptoms anytime before or since. She followed up with her therapist at the [facility] psych clinic, and thought she was getting better. Over spring, she spent most of her time sleeping, and on return to school yesterday felt "out of control of my emotions , started crying and couldn't stop, felt overwhelmed and anxious, and didn't think I'd be safe if I went home, so just got on the red [employer] bus and came here. " She describes "dreams and visions" where she sees herself cutting her wrists , and felt "a tingly feeling, like I wanted to try it." She was worried that she would act on these thoughts, and felt she needed to be in the hospital. She endorses a long history of depressed mood, and cannot recall a time where she felt good. She feels depressed most of the time, and endorses hopelessness that things will ever get better, stating "I want to believe it, but I've been like this for so long." She endorses decreased appetite, and thinks she has lost a few pounds. Concentration is poor, and she hasn't been able to focus on her schoolwork. Energy is low, she endorses daily crying spells, and sleep is decreased with shell sieve operator awakening. She endorses anhedonia, and cannot think of anything that she enjoys or looks forward to. She denies symptoms of olinda, eating disorder, thought disorder, and PTSD. She reports long-standing anxiety which is worse in new situations or when she is around new people, exacerbated by starting new classes or new semester. She worries excessively about people she is close to "in an unhealthy way, if they're okay, if they can deal with what's going on with me, whether or not they'll abandon me." She feels unable to control the worry, and interferes with sleep. She does not know what she's been diagnosed with, stating she completed psychological testing as an outpatient, but doesn't think anyone's review the results with her. She saw Dr. Bethea at the [facility] psych clinic for the first time about a week and a half ago, and was started on Lexapro, initially 5 mg daily, and then increase to 10 mg daily 4 days ago. She initially had some mild nausea, but thinks it is getting better. Hospital Course (1) Suicidal ideation -Suicide checks for safety. -Work on healthy coping skills and the discharge safety plan. -Recommend family meeting with mother. -Coordinate care with outpatient providers at the [facility] psych clinic. (2) Depression, major, recurrent -Reviewed diagnosis and recommended treatment. Patient is willing to increase escitalopram dose to 15 mg daily, and may increase further to 20 mg daily if tolerated. -Encourage participation in unit groups and programming. 06/09 -Will increase escitalopram to 20mg and move to bedtime for tomorrow at patient' s request. -Continue hydroxyzine prn for sleep. -Request records from [facility]. 06/10 - Lexapro to 20 mg. haydee (3) Anxiety disorder, unspecified -Increase escitalopram as above. Offer hydroxyzine as needed. 06/11 - Trial ativan 0.5 mg. daily prn anxiety (4) Thyroid disorder -Continue home dose of levothyroxine. Risk Factors Assessment : Yes /single/: Yes Health problems: Yes Mental Health Diagnoses: Yes Substance use disorders: No Previous attempt: No Previous psychiatric stay: No Hopelessness: Yes Smoker: No Protective Factors Assessment Rastafarian beliefs: No : No Responsible for young children: No Employed: No Stable relationships: No Supportive family: Yes Day of Discharge Assessment Mood significantly improved. No longer feeling depressed. Denies any thoughts to harm self or others. Denies any auditory or visual hallucinations or paranoia. Tolerating medications well. Looking forward to returning back to school. Laboratory Refer to printed laboratory reports Total Time Total Time Spent (min): Less than 30 minutes Total Time Included: examination of the patient, discharge planning, medication reconciliation Tobacco Cessation at Discharge FDA approved Prescription: non-smoker Copies To Additional Copies To: Shiloh Garrison
[2016-06-12] MEDS ORDERED: LEVO100T7 PO (11:04)
[2016-06-12] MEDS ORDERED: ESCI10TA17 PO (11:04)
== END 2016-06-12 12:35 | disposition home or self-care (01) | DRG 880 ==
LOC: ENRESERVDT → ENRESERVTM → C.EDB 15:18 → C.MHU 17:10
PROVIDERS: ADMIT Psychiatry & Neurology Psychiatry; ATTEND Psychiatry & Neurology Psychiatry
DX: R45.851 Suicidal ideations (principal); F33.2 Major depressive disorder, recurrent severe without psychotic features; F41.9 Anxiety disorder, unspecified; E07.9 Disorder of thyroid, unspecified; F17.210 Nicotine dependence, cigarettes, uncomplicated

== ENCOUNTER 2017-05-15 22:40 | Emergency (ER) | payer OTHER ==
[~2017-05-15] VITALS: Ht 170.2 cm; Wt 63.4 kg
[~2017-05-15 22:40] MED LIST changes: +ESCI10TA17 PO
[2017-05-15 22:43] VITALS: TEMP 36.8; Ht 170.2 cm; Wt 63.4 kg
[2017-05-15] MEDS ORDERED: SODIUM CHLORIDE 0.9% 1000ML 1,000 ML IV STA (23:07)
[2017-05-15] MEDS ORDERED: ONDANSETRON INJ 2 MG/ML 2 ML VIAL IV STA (23:26)
[2017-05-15 23:28] LABS: BASO % 0.4 %; BASO ABS # 0.03 K/uL (0-0.2); EOS % 1.2 %; EOS ABS # 0.09 K/uL (0-0.5); HEMATOCRIT 38.6 % (37-47); HEMOGLOBIN 13.8 g/dL (12.0-16.0); LYMPH % 45.6 %; LYMPH ABS # 3.32 K/uL (1.2-3.4); MEAN CELL VOLUME 85.8 fL (80-100); MEAN CORPUSCULAR HEMOGLOBIN 30.7 pg (25-34); MEAN CORPUSCULAR HGB CONC 35.8 g/dl (32-36); MONO % 6.3 %; MONO ABS # 0.46 K/uL (0.11-0.59); NEUT % 46.5 %; NEUT ABS # 3.38 K/uL (1.4-6.5); PLATELET COUNT 174 K/uL (130-400); RED CELL DISTRIBUTION WIDTH CV 12.2 % (11.5-14.5); RED CELL DISTRIBUTION WIDTH SD 38.3 fL (36.4-46.3); WHITE BLOOD COUNT 7.28 K/uL (4.8-10.8)
[2017-05-15] MEDS ORDERED: PROMETHAZINE HCL INJ 25 MG in SODIUM CHLORIDE 0.9% 50ML 50 ML IV STA (23:28)
[2017-05-15 23:39] LABS: ALBUMIN 4.1 gm/dl (3.4-5.0); CALCIUM 9.4 mg/dl (8.5-10.1); CREATININE 0.98 mg/dl (0.60-1.20); POTASSIUM 3.3 mmol/L (3.5-5.1)
[2017-05-15 23:41] LABS: TOTAL PROTEIN 8.3 gm/dl (6.4-8.2)
[2017-05-16 00:59] LABS: INFLUENZA B ANTIGEN Neg for Influ B (NEG)
[2017-05-16 01:33] VITALS: BP 120/67; PULSE 76; O2SAT 100
[2017-05-16] MEDS ORDERED: PHENERGAN 25MG HOMEPACK PO ONE (01:45)
--- NOTE | 2017-05-16 02:23 | EMERGENCY ROOM VISIT NOTE ---
History Report prepared by Tiffanie: hCer Nagy Under the Supervision of: Dr. Sang Castillo M.D. First contact with patient: 23:07 Chief Complaint: VOMITING Stated Complaint: FAINTING,VOMITING Nursing Triage Summary: PT was at [employer] all weekend long, states "I have been having issues with passing out past few months, I have been to several different doctors. They all say different things. I was at [employer] all weekend, and I had been staying hydrated, but now I am dizzy, and I vomited once before I got here" PT has no other complaints, denies any burning upon urination. PT lungs CTA. Denies fever/chills History of Present Illness The patient is a 21 year old female who presents to the Emergency Room with complaints of persistent nausea and fatigue that began at 2200 one day ago. The patient states that she is in a [employer] committee, noting she has been at [employer] most of the last 2 days. She reports that she has been staying hydrated and has not been skipping meals. The patient notes that she has been having trouble falling asleep, but thinks it might be because she has been taking energy supplements before going to her shifts at [employer]. She reports that she vomited while waiting for her friend to bring her to the Emergency Department. She notes that every time she tried eating today, she began experiencing abdominal pain. The patient reports that she experienced heart palpitations and shortness of breath prior to her nausea and abdominal pain episodes. The patient states that she is currently still nauseous, weak, has some diarrhea, and would like a flu swab. She reports that she had a migraine earlier in the week, noting that she has a history of them. The patient recently had an EKG, noting that her QT was elongated and the rest of the results were not completely normal. Pt denies LOC, headache, fevers, chills, diaphoresis, visual changes, neck pain , chest pain, back pain, melena, hematochezia, urinary symptoms, numbness, lymphadenopathy, rash, or other complaints. Source of History: patient Onset: 2200, one day ago Position: other (global) Quality: other (nausea and fatigue) Timing: other (persistent) Associated Symptoms: + SOB, + abdominal pain Note: Associated symptoms include: palpitations Review of Systems See HPI for pertinent positives and negatives. A total of ten systems were reviewed and were otherwise negative. Past Medical & Surgical Medical Problems: (1) Anxiety disorder, unspecified (2) Depression, major, recurrent (3) Prolonged QT interval (4) Suicidal ideation (5) Thyroid disorder Family History Patient reports no known family medical history. Social History Smoking Status: Never Smoker Alcohol Use: occasionally Marital Status: single Housing Status: lives with roommate Occupation Status: [employer] student Current/Historical Medications Scheduled Escitalopram (Lexapro), 20 MG PO DAILY Etonogestrel/Ethinyl Estradiol (Nuvaring), 1 EA VAGRING MONTHLY Levothyroxine Sodium (Levothyroxine Sodium), 100 MCG PO DAILY Allergies Coded Allergies: Nitrofurantoin (Verified Allergy, Intermediate, syncope, 05/15/17) Apple (Verified Allergy, Unknown, throat swells,itching, 05/15/17) Physical Exam Vital Signs Date Time Temp Pulse Resp B/P (MAP) Pulse Ox O2 Delivery O2 Flow Rate FiO2 05/16/17 01:33 76 18 120/67 100 Room Air 05/15/17 22:43 36.8 100 20 114/77 99 Room Air Physical Exam GENERAL: Awake, alert, well-appearing, in no distress HENT: Normocephalic, atraumatic. Oropharynx unremarkable. EYES: Normal conjunctiva. Sclera non-icteric. NECK: Supple. No nuchal rigidity. FROM. No masses. RESPIRATORY: Clear to auscultation. No wheezes. CARDIAC: Normal rate. Normal rhythm. No murmurs. No rubs. Extremities warm and well perfused. Pulses equal. No JVD. GI: Soft, non-distended. No tenderness to palpation. No rebound or guarding. No masses. RECTAL: Deferred. MUSCULOSKELETAL: Atraumatic. Chest examination reveals no tenderness. The back is symmetrical on inspection without obvious abnormality. There is no CVA tenderness to palpation. No joint edema. LOWER EXTREMITIES: Calves are equal size bilaterally and non-tender. No edema. No discoloration. NEURO: Normal sensorium. No sensory or motor deficits noted. SKIN: No rash or jaundice noted. Medical Decision & Procedures Laboratory Results 05/15/17 22:58 Red Blood Count 4.50, Mean Corpuscular Volume 85.8, Mean Corpuscular Hemoglobin 30.7, Mean Corpuscular Hemoglobin Concent 35.8, Mean Platelet Volume 11.0, Neutrophils (%) (Auto) 46.5, Lymphocytes (%) (Auto) 45.6, Monocytes (%) (Auto) 6.3, Eosinophils (%) (Auto) 1.2, Basophils (%) (Auto) 0.4, Neutrophils # (Auto) 3.38, Lymphocytes # (Auto) 3.32, Monocytes # (Auto) 0.46, Eosinophils # (Auto) 0.09, Basophils # (Auto) 0.03 05/15/17 22:58 Test 05/15/17 22:58 05/16/17 00:00 White Blood Count 7.28 K/uL (4.8-10.8) Red Blood Count 4.50 M/uL (4.2-5.4) Hemoglobin 13.8 g/dL (12.0-16.0) Hematocrit 38.6 % (37-47) Mean Corpuscular Volume 85.8 fL (80-100) Mean Corpuscular Hemoglobin 30.7 pg (25-34) Mean Corpuscular Hemoglobin Concent 35.8 g/dl (32-36) Platelet Count 174 K/uL (130-400) Mean Platelet Volume 11.0 fL (7.4-10.4) Neutrophils (%) (Auto) 46.5 % Lymphocytes (%) (Auto) 45.6 % Monocytes (%) (Auto) 6.3 % Eosinophils (%) (Auto) 1.2 % Basophils (%) (Auto) 0.4 % Neutrophils # (Auto) 3.38 K/uL (1.4-6.5) Lymphocytes # (Auto) 3.32 K/uL (1.2-3.4) Monocytes # (Auto) 0.46 K/uL (0.11-0.59) Eosinophils # (Auto) 0.09 K/uL (0-0.5) Basophils # (Auto) 0.03 K/uL (0-0.2) RDW Standard Deviation 38.3 fL (36.4-46.3) RDW Coefficient of Variation 12.2 % (11.5-14.5) Immature Granulocyte % (Auto) 0.0 % Immature Granulocyte # (Auto) 0.00 K/uL (0.00-0.02) Urine Color YELLOW Urine Appearance CLOUDY (CLEAR) Urine pH 5.0 (4.5-7.5) Urine Specific Many 1.026 (1.000-1.030) Urine Protein 1+ (NEG) Urine Glucose (UA) NEG (NEG) Urine Ketones 4+ (NEG) Urine Occult Blood TRACE (NEG) Urine Nitrite NEG (NEG) Urine Bilirubin NEG (NEG) Urine Urobilinogen NEG (NEG) Urine Leukocyte Esterase TRACE (NEG) Urine WBC (Auto) 10-30 /hpf (0-5) Urine RBC (Auto) 0-4 /hpf (0-4) Urine Hyaline Casts (Auto) 5-10 /lpf (0-5) Urine Epithelial Cells (Auto) >30 /lpf (0-5) Urine Bacteria (Auto) NEG (NEG) Anion Gap 16.0 mmol/L (3-11) Est Creatinine Clear Calc Drug Dose 89.1 ml/min Estimated GFR () 96.2 Estimated GFR (Non- 83.0 BUN/Creatinine Ratio 9.9 (10-20) Calcium Level 9.4 mg/dl (8.5-10.1) Total Bilirubin 0.8 mg/dl (0.2-1) Direct Bilirubin 0.2 mg/dl (0-0.2) Aspartate Amino Transf (AST/SGOT) 22 U/L (15-37) Alanine Aminotransferase (ALT/SGPT) 23 U/L (12-78) Alkaline Phosphatase 68 U/L (45-117) Total Creatine Kinase 60 U/L (26-192) Total Protein 8.3 gm/dl (6.4-8.2) Albumin 4.1 gm/dl (3.4-5.0) Lipase 114 U/L (73-393) Thyroid Stimulating Hormone (TSH) 1.170 uIu/ml (0.300-4.500) Human Chorionic Gonadotropin, Qual NEG (NEG) Influenza Type A Antigen Neg for Influ A (NEG) Influenza Type B Antigen Neg for Influ B (NEG) Laboratory results reviewed by me. Medications Administered Medications (Trade) Dose Ordered Sig/Luisa Route Start Time Stop Time Status Last Admin Dose Admin Sodium Chloride 1,000 ml @ 999 mls/hr Q1H1M STAT IV 05/15/17 23:07 05/16/17 00:07 DC 05/15/17 23:00 999 MLS/HR Promethazine HCl 25 mg/Sodium Chloride 51 ml @ 204 mls/hr NOW STAT IV 05/15/17 23:28 05/15/17 23:42 DC 05/16/17 00:25 204 MLS/HR Promethazine HCl (Phenergan 25MG Home Pack) 1 homepack UD ONCE PO 05/16/17 01:45 05/16/17 01:46 DC 05/16/17 01:39 1 HOMEPACK ECG Per My Interpretation Indication: vomiting Rate (beats per minute): 77 Rhythm: sinus rhythm (with arrhythmia ) Findings: no acute ischemic change, no ectopy, other (normal intervals) ED Course 2303: The patient was evaluated in room C11. A complete history and physical exam was performed. 2307: Ordered Sodium Chloride 1000ml @ 999 mls/hr IV. 2326: Ordered Zofran Inj 4mg IV. 2328: Ordered Promethazine HCL 25mg/ Sodium Chloride 51ml @ 204 mls/hr IV. 0028: I reevaluated the patient, who is currently stable. I discussed some test findings. 0131: I reevaluated the patient. Discussed results and discharge instructions: She verbalized understanding and agreement. The patient is ready for discharge. 0145: Ordered Promethazine HCL 1 homepack PO. Medical Decision Triage Nursing notes reviewed. The patient's presentation and history were concerning for nausea, fatigue. Etiologies such as sleep deprivation, viral syndrome, metabolic, infection, hypo /hyperglycemia, electrolyte abnormalities, cardiac sources, intracerebral event , toxicologic, neurologic, as well as others were entertained. The patient was evaluated. Clinically she was doing well. She had a benign abdomen. Vital signs were stable. She was hydrated. She was given Phenergan for her nausea. She did well with this. Her CBC was unremarkable. Chemistry panel was unremarkable except for a minimal decrease in her potassium. She had moderate ketones noted on urine testing. No gross signs of infection. and TSH were negative. Flu testing was negative as well. On reassessment she was doing better. She had resolution of her symptoms was tolerating oral fluids. I suspect the lack of sleep is a a big contributing factor. Conservative management was discussed and she felt comfortable. She' ll follow up with [facility]. By the evaluation outlined above other emergent etiologies such as those listed in the differential, as well as others, were deemed relatively unlikely. The patient was educated about the findings as listed above. All questions were answered and the patient was pleased with the treatment. Return instructions were outlined and the patient was discharged in stable condition. The patient was referred to [facility] for follow-up for a recheck of the current condition. Medication Reconcilliation Current Medication List: was personally reviewed by me Blood Pressure Screening Patient's blood pressure: Normal blood pressure Blood pressure disposition: Did not require urgent referral Impression Primary Impression: Nausea Additional Impression: Fatigue Scribe Attestation The scribe's documentation has been prepared under my direction and personally reviewed by me in its entirety. I confirm that the note above accurately reflects all work, treatment, procedures, and medical decision making performed by me. Departure Information Dispostion Home / Self-Care Referrals No Doctor, Assigned (PCP) Forms HOME CARE DOCUMENTATION FORM, IMPORTANT VISIT INFORMATION Patient Instructions My [facility] Additional Instructions DO NOT drive, drink alcohol, operate machinery, or perform dangerous activities today. You were given medications in the ER that can affect your ability to safely function or operate a vehicle. Phenergan(promethazine) tablets 25mg: Take one every six hours as needed for nausea. Avoid alcohol, operating machinery or dangerous equipment, working on ladders or roofs, DRIVING, or situations where being under the influence may be dangerous. Ibuprofen(Motrin, Advil) may be used for fever or pain. Use 600mg every six hours as needed. Take with food. Avoid using more than 2400mg in a 24 hour period. Do not use 2400mg per day for more than three consecutive days without physician direction. Prolonged inappropriate use can lead to stomach upset or ulcers. (AND/OR) Acetaminophen(Tylenol) may be used for fever or pain. Use 1000mg every six hours as needed. Avoid using more than 4000mg in a 24 hour period. Rest and drink plenty of fluids as tolerated. Slow sips of water or sports drinks are recommended instead of large amounts all at once. Continue current medications. Once your stomach is settled start with a clear liquid diet (jello, soup broth, etc.) and then advance as tolerated. You should avoid full, heavy meals for about 24 hrs from the time your symptoms resolved. Return to the ER for persistent vomiting, fevers, abdominal pain, chest pains, difficulty breathing, black or bloody stools, worsening of your condition, or as needed. Follow up with [facility] in 2-3 days for a recheck of your current condition Problem Qualifiers
== END 2017-05-16 01:40 | disposition home or self-care (01) ==
LOC: C.EDB 22:42 → C.EDC 05-16 01:40
DX: R11.0 Nausea (principal); R53.83 Other fatigue; F41.9 Anxiety disorder, unspecified; F32.9 Major depressive disorder, single episode, unspecified; E07.9 Disorder of thyroid, unspecified; Z88.1 Allergy status to other antibiotic agents; Z91.018 Allergy to other foods